=== PATIENT | female | born 1995 ===

== ENCOUNTER → 2017-02-10 | Outpatient (CLI) | payer BC | END | disposition home or self-care (01) | LOC: C.PAPS 10:01 | PROVIDERS: ATTEND Obstetrics & Gynecology | DX: Z01.419 Encounter for gynecological examination (general) (routine) without abnormal findings (principal); R87.610 Atypical squamous cells of undetermined significance on cytologic smear of cervix (ASC-US) ==

== ENCOUNTER → 2017-03-07 | Outpatient (CLI) | payer BC | END | disposition home or self-care (01) | LOC: C.PAPS 15:29 | PROVIDERS: ATTEND Obstetrics & Gynecology | DX: R87.820 Cervical low risk human papillomavirus (HPV) DNA test positive (principal) ==

== ENCOUNTER → 2017-03-07 | Outpatient (CLI) | payer BC | END | disposition home or self-care (01) | LOC: C.PATHSPEC 14:11 | PROVIDERS: ATTEND Obstetrics & Gynecology | DX: R87.820 Cervical low risk human papillomavirus (HPV) DNA test positive (principal) ==